=== PATIENT | female | born 1960 | race Caucasian/White ===

== ENCOUNTER 2018-05-11 02:11 | Inpatient (IN) | payer BC ==
[~2018-05-11] VITALS: Ht 165.1 cm; Wt 76.7 kg
[2018-05-11 03:15] LABS: BASOPHIL % 0.7 % (0-2); PLATELET COUNT 202 x10^3mcL (130-400); RED CELL DISTRIBUTION WIDTH 13.2 % (11.5-14.5)
[2018-05-11 03:51] LABS: CALCIUM 8.7 mg/dL (8.5-10.1); CARBON DIOXIDE 28.7 mmol/L (21-32); CHLORIDE SERUM 106 mmol/L (98-107); CREATININE SERUM 0.7 mg/dL (0.6-1.0); GFR1 > 60 mL/min; GLUCOSE SERUM 91 mg/dL (74-106); POTASSIUM SERUM 3.6 mmol/L (3.5-5.1); SODIUM SERUM 139 mmol/L (136-145)
[2018-05-11 03:55] LABS: ALKALINE PHOSPHATASE 47 U/L (46-116); ALT/SGPT 19 U/L (14-59); AST/SGOT 15 U/L (15-37); BILIRUBIN TOTAL 0.7 mg/dL (0.20-1.00); LIPASE 208 IU/L (73-393); TOTAL PROTEIN, SERUM 6.5 g/dL (6.4-8.2)
[2018-05-11 04:05] LABS: ALBUMIN 3.3 g/dL (3.4-5.0)
[2018-05-11 05:39] VITALS: BP 112/55
[2018-05-11 05:47] LABS: CHOLESTEROL/HDL RATIO 2.8; MAGNESIUM 2.1 mg/dL (1.8-2.4)
[2018-05-11 05:51] LABS: T3 TOTAL 1.21 ng/mL
[2018-05-11 05:55] LABS: FREE T4 1.11 ng/dL (0.76-1.46); FREE THYROXINE INDEX 2.9 ug/dL (1.4-4.5); T4(THYROXINE) 8.7 ug/dL (4.7-13.3)
[2018-05-11 09:12] VITALS: BP 101/52
[2018-05-11 16:36] VITALS: BP 128/57
[2018-05-11 21:16] VITALS: BP 107/55
[2018-05-12 05:44] VITALS: BP 110/59
[2018-05-12 06:17] LABS: CALCIUM 9.4 mg/dL (8.5-10.1); CARBON DIOXIDE 28.9 mmol/L (21-32); CHLORIDE SERUM 106 mmol/L (98-107); CREATININE SERUM 0.7 mg/dL (0.6-1.0); GFR1 > 60 mL/min; GLUCOSE SERUM 80 mg/dL (74-106); POTASSIUM SERUM 4.4 mmol/L (3.5-5.1); SODIUM SERUM 141 mmol/L (136-145)
[2018-05-12 06:48] LABS: BASOPHIL % 0.7 % (0-2); PLATELET COUNT 193 x10^3mcL (130-400); RED CELL DISTRIBUTION WIDTH 14.5 % (11.5-14.5)
[2018-05-12 09:11] VITALS: BP 104/56
[2018-05-12] MEDS ORDERED: PRILOSEC OTC20 M1 PO (11:02)
[2018-05-12 12:25] VITALS: BP 104/56
== END 2018-05-12 12:57 | disposition home or self-care (01) | DRG 311 ==
LOC: ED 02:11 → DU 04:52
PROVIDERS: Emergency Medicine; Internal Medicine
DX: I24.9 Acute ischemic heart disease, unspecified (principal); E44.1 Mild protein-calorie malnutrition; K21.9 Gastro-esophageal reflux disease without esophagitis; Z88.8 Allergy status to other drugs, medicaments and biological substances; Z90.710 Acquired absence of both cervix and uterus; Z98.84 Bariatric surgery status; E02 Subclinical iodine-deficiency hypothyroidism; Z98.42 Cataract extraction status, left eye; Z98.41 Cataract extraction status, right eye; E88.09 Other disorders of plasma-protein metabolism, not elsewhere classified; Z80.3 Family history of malignant neoplasm of breast; Z71.3 Dietary counseling and surveillance
CPT/HCPCS: 84439; J7030; Q0092